=== PATIENT | male | born 1990 | race Caucasian/White ===

== ENCOUNTER 2016-07-05 01:18 | Emergency (ER) | payer OTHER ==
[~2016-07-05] VITALS: Ht 177.8 cm; Wt 72.0 kg
[2016-07-05 01:21] VITALS: BP 140/83; PULSE 69; RESP 16; TEMP 97.4; O2SAT 98
[2016-07-05 01:40] VITALS: RESP 16
[2016-07-05] MEDS ORDERED: SUBO8MIS SL (01:42)
[2016-07-05 01:51] LABS: AUTOMATED NEUTROPHIL # 2.9 TH/MM3 (1.8-7.7); BASOPHIL # 0.1 TH/MM3 (0-0.2); BASOPHIL % 0.9 % (0.0-2.0); EOSINOPHIL # 0.5 TH/MM3 (0-0.4); EOSINOPHIL % 8.4 % (0.0-4.0); HEMO FLAGS DIFF FINAL; LYMPH % 38.6 % (9.0-44.0); LYMPHOCYTE # 2.5 TH/MM3 (1.0-4.8); MEAN CELL VOLUME 83.7 FL (80.0-100.0); MEAN CORPUSCULAR HEMOGLOBIN 29.2 PG (27.0-34.0); MEAN CORPUSCULAR HGB CONC 34.9 % (32.0-36.0); MONO % 8.3 % (0.0-8.0); NEUT % 43.8 % (16.0-70.0); PLATELET COUNT 336 TH/MM3 (150-450); RED CELL DISTRIBUTION WIDTH 14.1 % (11.6-17.2); WHITE BLOOD COUNT 6.5 TH/MM3 (4.0-11.0)
--- NOTE | 2016-07-05 02:24 | RADRPT ---
EXAM DATE/TIME: 07/05/2016 01:48 [facility] COMPARISON: CT BRAIN W/O CONTRAST, November 01, 2015, 13:59. INDICATIONS : Syncope and dizziness. RADIATION DOSE: 38.21 CTDIvol (mGy) MEDICAL HISTORY : IV drug use. SURGICAL HISTORY : None. ENCOUNTER: Initial ACUITY: 1 day PAIN SCALE: 0/10 LOCATION: cranial TECHNIQUE: Multiple contiguous axial images were obtained of the head. Using automated exposure control and adj ustment of the mA and/or kV according to patient size, radiation dose was kept as low as reasonably a chievable to obtain optimal diagnostic quality images. FINDINGS: CEREBRUM: The ventricles are normal for age. No evidence of midline shift, mass lesion, hemorrhage or acute in farction. No extra-axial fluid collections are seen. POSTERIOR FOSSA: The cerebellum and brainstem are intact. The 4th ventricle is midline. The cerebellopontine angle i s unremarkable. EXTRACRANIAL: He callosal thickening right maxillary sinus. SKULL: The calvaria is intact. No evidence of skull fracture. CONCLUSION: 1. No acute intracranial findings. 2. Right maxillary sinus disease. Alex Sanders MD on July 05, 2016 at 2:21 Board Certified Radiologist. This report was verified electronically.
[2016-07-05 02:25] LABS: ALT (GPT) 21 U/L (12-78); ANION GAP 12 MEQ/L (5-15); AST (GOT) 20 U/L (15-37); BLOOD UREA NITROGEN 7 MG/DL (7-18); CHLORIDE 100 MEQ/L (98-107); GLOMERULAR FILTRATION RATE 107 ML/MIN (>89); MAGNESIUM 1.8 MG/DL (1.5-2.5); SODIUM (NA) 139 MEQ/L (136-145)
[2016-07-05 02:34] LABS: ACETAMINOPHEN LESS THAN 2.0 MCG/ML (10.0-30.0); ALKALINE PHOSPHATASE 122 U/L (45-117); CREATINE KINASE 134 U/L (39-308); TOTAL BILIRUBIN ADULT 0.6 MG/DL (0.2-1.0)
--- NOTE | 2016-07-05 02:44 | RADRPT ---
EXAM DATE/TIME: 07/05/2016 01:52 [facility] COMPARISON: No previous studies available for comparison. INDICATIONS : Chest pain. MEDICAL HISTORY : None. SURGICAL HISTORY : None. ENCOUNTER: Initial ACUITY: 1 day PAIN SCORE: 5/10 LOCATION: Bilateral chest FINDINGS: Single AP view of the chest. The lungs are clear. Cardiomediastinal silhouette within normal limits. No evidence of pleural effusion or pneumothorax. CONCLUSION: No acute cardiopulmonary disease identified. Alex Sanders MD on July 05, 2016 at 2:42 Board Certified Radiologist. This report was verified electronically.
[2016-07-05 02:46] LABS: CKMB 0.8 NG/ML (0.5-3.6)
--- NOTE | 2016-07-05 04:15 | PD ---
HPI Chief Complaint: Syncope/Near-Syncope Time Seen by Provider: 01:34 Travel History International Travel<30 days: No Contact w/Intl Traveler<30days: No Traveled to known affect area: No History of Present Illness HPI The patient is a 25 year old male who presents to the [facility] emergency department with a history of awakening from sound sleep with a sensation of his heart racing and palpitations. He reports that he sat up in the bed in the next thing he knew his he awoke again a few minutes later. He called his dad and was brought to the emergency department for evaluation. The patient reports that his recent history is significant for 4-5 days ago using IV Dilaudid for the last time. He reports that he has been on Suboxone for the last week and a half. He reports that most of his withdrawal symptoms have been controlled with the Suboxone, however he does have a history of anxiety and he has been somewhat tremulous. He reports that he is also had a history of panic attacks in the past and since arriving in the emergency department he is wondering if he was experiencing a panic attack and hyperventilating which caused him to pass out. He denies having any rashes or fever. He denies having any headache or neck pain. He reports that he is currently on an antibiotic for a dental infection. He has an appointment with his dentist for follow-up this week. The patient reports that he has not been tested for HIV or hepatitis, however he is interested in testing. The patient denies any cough , congestion, chest pain, shortness of breath, abdominal pain, vomiting, diarrhea, urinary symptoms, or neurologic symptoms. [facility] Past Medical History Narrative Medical The patient's past medical history is significant for IV Dilaudid use reportedly for years. He reports that he was prior to discontinuing his use injecting 5 times a day, 8 mg of Dilaudid. The patient has a history of panic attacks. Medical History: Denies Significant Hx Tetanus Vaccination: Unknown Past Surgical History Narrative Surgical The patient denies any past surgical history. Surgical History: No Previous Surgery Social History Alcohol Use: Yes (Couple beers a week) Tobacco Use: Yes (0.5 pack a week) Substance Use: Yes (Coccaine every so often, Dilaudid IV) Allergies-Medications (Allergen,Severity, Reaction): Coded Allergies: No Known Allergies (Unverified , 07/05/16) Reported Meds & Prescriptions Reported Meds & Active Scripts Active Reported Suboxone Sublingual Film (Buprenorphine-Naloxone Sublingual Film) 8-2 Mg Film 1 Film SL Q8HR Unique ID number required: Review of Systems Except as stated in HPI: all other systems reviewed are Neg General / Constitutional: No: Fever Eyes: No: Visual changes HENT: No: Headaches, Rhinorrhea, Congestion Cardiovascular: Positive: Palpitations, No: Chest Pain or Discomfort, Dyspnea on exertion Respiratory: No: Cough, Shortness of Breath Gastrointestinal: No: Nausea, Vomiting, Diarrhea, Abdominal Pain, Changes in Bowel Habits, Indigestion, Loss of Appetite Genitourinary: No: Dysuria Musculoskeletal: No: Pain Skin: No Rash Neurologic: No: Weakness, Focal Abnormalities, Change in Mentation, Slurred Speech, Sensory Disturbance Psychiatric: Positive: Substance Abuse, No: Depression Endocrine: No: Polydipsia Hematologic/Lymphatic: No: Easy Bruising Physical Exam Narrative General: The patient is a well-developed well-nourished male in no acute distress. Head and Neck exam: Head is normocephalic atraumatic. Eyes: EOMI, pupils are equal round and reactive to light. Nose: Midline septum with pink mucous membranes Mouth: Dentition unremarkable. Moist mucus membranes. Posterior oropharynx is not erythematous. No tonsillar hypertrophy. Uvula midline. Airway patent. Neck: No palpable lymphadenopathy. No nuchal rigidity. No thyromegaly. Cardiovascular: Regular rate and rhythm without murmurs, gallops, or rubs. Lungs: Clear to auscultation bilaterally. No wheezes, rhonchi, or rales. Abdomen: Soft, without tenderness to palpation in all 4 quadrants of the abdomen. No guarding, rebound, or rigidity. Normal bowel sounds are audible. Extremities: No clubbing, cyanosis, or edema. 2+ pulses in all 4 extremities. No calf tenderness on palpation. Back: No spinous process tenderness to palpation. No costovertebral angle tenderness to palpation. Neurologic Exam: Grossly nonfocal. Skin Exam: No rash noted. Intact skin that is warm and dry. Data Data Last Documented VS Vital Signs Date Time Temp Pulse Resp B/P Pulse Ox O2 Delivery O2 Flow Rate FiO2 07/05/16 01:40 16 Room Air 07/05/16 01:21 97.4 69 140/83 98 Orders Electrocardiogram (07/05/16 01:34) Complete Blood Count With Diff (07/05/16 01:34) Comprehensive Metabolic Panel (07/05/16 01:34) Creatine Kinase (Cpk) (07/05/16 01:34) Ckmb (Isoenzyme) Profile (07/05/16 01:34) Troponin I (07/05/16 01:34) Lipase (07/05/16 01:34) Urinalysis - C+S If Indicated (07/05/16 01:34) Magnesium (Mg) (07/05/16 01:34) Thyroid Stimulating Hormone (07/05/16 01:34) Chest, Single Ap (07/05/16 01:34) Iv Access Insert/Monitor (07/05/16 01:34) Ecg Monitoring (07/05/16 01:34) Oximetry (07/05/16 01:34) Orthostatic Vital Signs (07/05/16 01:34) Drug Screen, Random Urine (07/05/16 01:34) Alcohol (Ethanol) (07/05/16 01:34) Salicylates (Aspirin) (07/05/16 01:34) Tylenol (Acetaminophen) (07/05/16 01:34) Ct Brain W/O Iv Contrast(Rout) (07/05/16 01:34) CKMB (07/05/16 01:45) CKMB% (07/05/16 01:45) Labs Laboratory Tests Test 07/05/16 01:45 White Blood Count 6.5 TH/MM3 Red Blood Count 4.90 MIL/MM3 Hemoglobin 14.3 GM/DL Hematocrit 41.0 % Mean Corpuscular Volume 83.7 FL Mean Corpuscular Hemoglobin 29.2 PG Mean Corpuscular Hemoglobin 34.9 % Concent Red Cell Distribution Width 14.1 % Platelet Count 336 TH/MM3 Mean Platelet Volume 7.3 FL Neutrophils (%) (Auto) 43.8 % Lymphocytes (%) (Auto) 38.6 % Monocytes (%) (Auto) 8.3 % Eosinophils (%) (Auto) 8.4 % Basophils (%) (Auto) 0.9 % Neutrophils # (Auto) 2.9 TH/MM3 Lymphocytes # (Auto) 2.5 TH/MM3 Monocytes # (Auto) 0.5 TH/MM3 Eosinophils # (Auto) 0.5 TH/MM3 Basophils # (Auto) 0.1 TH/MM3 CBC Comment DIFF FINAL Differential Comment Sodium Level 139 MEQ/L Potassium Level 4.0 MEQ/L Chloride Level 100 MEQ/L Carbon Dioxide Level 27.0 MEQ/L Anion Gap 12 MEQ/L Blood Urea Nitrogen 7 MG/DL Creatinine 0.88 MG/DL Estimat Glomerular Filtration 107 ML/MIN Rate Random Glucose 89 MG/DL Calcium Level 8.7 MG/DL Magnesium Level 1.8 MG/DL Total Bilirubin 0.6 MG/DL Aspartate Amino Transf 20 U/L (AST/SGOT) Alanine Aminotransferase 21 U/L (ALT/SGPT) Alkaline Phosphatase 122 U/L Total Creatine Kinase 134 U/L Creatine Kinase MB 0.8 NG/ML Troponin I LESS THAN 0.02 NG/ML Total Protein 7.3 GM/DL Albumin 3.7 GM/DL Lipase 96 U/L Thyroid Stimulating Hormone 1.470 uIU/ML 3rd Gen Salicylates Level LESS THAN 1.7 MG/DL Acetaminophen Level LESS THAN 2.0 MCG/ML Ethyl Alcohol Level LESS THAN 3 MG/DL MDM Medical Decision Making Medical Screen Exam Complete: Yes Emergency Medical Condition: Yes Medical Record Reviewed: Yes Interpretation(s) Laboratory Tests Test 07/05/16 01:45 White Blood Count 6.5 TH/MM3 Red Blood Count 4.90 MIL/MM3 Hemoglobin 14.3 GM/DL Hematocrit 41.0 % Mean Corpuscular Volume 83.7 FL Mean Corpuscular Hemoglobin 29.2 PG Mean Corpuscular Hemoglobin 34.9 % Concent Red Cell Distribution Width 14.1 % Platelet Count 336 TH/MM3 Mean Platelet Volume 7.3 FL Neutrophils (%) (Auto) 43.8 % Lymphocytes (%) (Auto) 38.6 % Monocytes (%) (Auto) 8.3 % Eosinophils (%) (Auto) 8.4 % Basophils (%) (Auto) 0.9 % Neutrophils # (Auto) 2.9 TH/MM3 Lymphocytes # (Auto) 2.5 TH/MM3 Monocytes # (Auto) 0.5 TH/MM3 Eosinophils # (Auto) 0.5 TH/MM3 Basophils # (Auto) 0.1 TH/MM3 CBC Comment DIFF FINAL Differential Comment Sodium Level 139 MEQ/L Potassium Level 4.0 MEQ/L Chloride Level 100 MEQ/L Carbon Dioxide Level 27.0 MEQ/L Anion Gap 12 MEQ/L Blood Urea Nitrogen 7 MG/DL Creatinine 0.88 MG/DL Estimat Glomerular Filtration 107 ML/MIN Rate Random Glucose 89 MG/DL Calcium Level 8.7 MG/DL Magnesium Level 1.8 MG/DL Total Bilirubin 0.6 MG/DL Aspartate Amino Transf 20 U/L (AST/SGOT) Alanine Aminotransferase 21 U/L (ALT/SGPT) Alkaline Phosphatase 122 U/L Total Creatine Kinase 134 U/L Creatine Kinase MB 0.8 NG/ML Troponin I LESS THAN 0.02 NG/ML Total Protein 7.3 GM/DL Albumin 3.7 GM/DL Lipase 96 U/L Thyroid Stimulating Hormone 1.470 uIU/ML 3rd Gen Salicylates Level LESS THAN 1.7 MG/DL Acetaminophen Level LESS THAN 2.0 MCG/ML Ethyl Alcohol Level LESS THAN 3 MG/DL Differential Diagnosis Cardiac arrhythmia, versus panic disorder, versus dehydration, versus electrolyte abnormality, versus sleep apnea Narrative Course During the course of the patients emergency department visit, the patients history, examination, and differential diagnosis were reviewed with the patient. The patient had IV access obtained and blood work sent for analysis. The patient was placed on a bus driver/monitor with oximetry and blood pressure monitoring. An EKG was done on arrival. The patient's EKG reveals a sinus rhythm heart rate of 66, no acute ST segment elevation is noted, T waves are inverted in V1. The patient en route to this facility was by mouth hydrated with fluids. The patients laboratory studies were reviewed and remarkable for a CBC that shows a white count of 6.5, hemoglobin 14.3, platelets 336 with 8.3 monocytes, CMP is unremarkable, alkaline phosphatase 122, initial set of cardiac enzymes are negative, lipase 96, TSH 1.47, acetaminophen is less than 2, alcohol level less than 3, salicylate less than 1.7. Radiology studies were reviewed and remarkable for a chest x-ray that is unremarkable. CT scan of the brain is unremarkable. The patient is interested in HIV and hepatitis testing. The patient was referred to the [facility] Department for follow-up regarding this. The patient reported feeling improved. The patient had no recurrence of symptoms similar to what he experienced prior to arrival. I suspect that the patient's symptoms are related to a panic attack at the patient reports having similar symptoms to this in the past with a panic attack. The patient is resting comfortably and feels better, is alert and in no distress. The patients results and examination findings were discussed with the patient. The repeat examination is unremarkable and benign. The history, exam, diagnostic testing, and current condition do not suggest any significant pathology to warrant further testing, continued ED treatment, admission, or surgical evaluation at this point. The vital signs have been stable. The patient does not have uncontrollable pain, intractable vomiting, or other significant symptoms. The patient's condition is stable and appropriate for discharge. The patient will pursue further outpatient evaluation with a primary care physician or other designated or consulting physician as indicated in the discharge instructions. The patient expressed understanding and was agreeable with this plan. Diagnosis Primary Impression: Panic attack Additional Impression: Palpitations Referrals: [facility] Dept. 1 day Follow-up with the health department for HIV testing and hepatitis testing given your history of IV drug use Patient Instructions: General Instructions, Palpitations (ED) Med/Other Pt SpecificInfo: No Change to Meds Disposition: 01 DISCHARGE HOME Condition: Stable Fiona Martin MD Jul 05, 2016 04:15
--- NOTE | 2016-07-05 14:41 | EKG ---
Date Performed: 07/05/2016 Time Performed: 01:41:06 PTAGE: 25 years EKG: Sinus rhythm POSSIBLE RIGHT VENTRICULAR CONDUCTION DELAY BORDERLINE ECG NO PREVIOUS TRACING DOCTOR: Nathan Dunaway Interpretating Date/Time 07/05/2016 14:38:52
== END 2016-07-05 04:35 | disposition home or self-care (01) ==
LOC: NEPE 01:18
DX: F41.0 Panic disorder [episodic paroxysmal anxiety] (principal); R00.2 Palpitations; F41.9 Anxiety disorder, unspecified; Z72.0 Tobacco use; R94.31 Abnormal electrocardiogram [ECG] [EKG]
CPT/HCPCS: 70450; 71010; 80053; 80307; 82550; 82552; 83690; 83735; 84443; 84484; 85025; 93005

== ENCOUNTER 2016-07-18 10:45 | Emergency (ER) | payer OTHER ==
[~2016-07-18] VITALS: Ht 177.8 cm; Wt 70.0 kg
[~2016-07-18 10:45] MED LIST: SUBO8MIS SL
[2016-07-18 10:47] VITALS: BP 107/64; PULSE 58; RESP 16; TEMP 98.2; O2SAT 98
[2016-07-18] MEDS ORDERED: CLIN1CAP5 PO (12:35)
--- NOTE | 2016-07-18 12:36 | PD ---
HPI Chief Complaint: Oral / Dental Pain or Problem Time Seen by Provider: 12:32 Travel History International Travel<30 days: No Contact w/Intl Traveler<30days: No Traveled to known affect area: No History of Present Illness HPI 25-year-old male presents to the emergency department for evaluation of dental pain that has been ongoing for several months. He states he has had 2 rounds of penicillin. He finished his penicillin yesterday. He states that he is to follow-up with an oral surgeon to have it removed. However, started radiating to his ear which he became concerned. He denies any facial swelling. No fevers. He states that he has been having anxiety attacks and is concerned that his might be "in septic shock". The patient appears very well on exam. He has no melena medical problems and takes no other medications. No other complaints. [facility] Past Medical History Medical History: Denies Significant Hx Past Surgical History Surgical History: No Previous Surgery Social History Alcohol Use: Yes (Couple beers a week) Tobacco Use: Yes (0.5 pack a week cigarettes / can a day for "chew") Substance Use: Yes (Coccaine every so often, Dilaudid IV) Allergies-Medications (Allergen,Severity, Reaction): Coded Allergies: No Known Allergies (Unverified , 07/18/16) Reported Meds & Prescriptions Reported Meds & Active Scripts Active Reported Suboxone Sublingual Film (Buprenorphine-Naloxone Sublingual Film) 8-2 Mg Film 1 Film SL Q8HR Unique ID number required: Review of Systems Except as stated in HPI: all other systems reviewed are Neg Physical Exam Narrative GENERAL: Well-nourished, well-developed patient , ambulatory. Afebrile. Patient appears well on exam. SKIN: Focused skin assessment warm/dry. HEAD: Normocephalic. Atraumatic. ENT: Mucosa pink and moist. No erythema or exudates. No uvular edema. No uvular , palatal, or tonsillar deviation. Airway patent. Nasal turbinates appear normal without nasal blood, purulent drainage or septal hematoma. Bilateral tympanic membranes are clear without erythema or perforation. Tooth #30 is cracked. There is no gingival fluctuance or evidence of dental abscess. EYES: No scleral icterus. No injection or drainage. NECK: Supple, trachea midline. No JVD or lymphadenopathy. CARDIOVASCULAR: Regular rate and rhythm without murmurs, gallops, or rubs. RESPIRATORY: Breath sounds equal bilaterally. No accessory muscle use. Lungs sounds clear to auscultation. GASTROINTESTINAL: Abdomen soft, non-tender, nondistended. MUSCULOSKELETAL: No cyanosis, or edema. BACK: Nontender without obvious deformity. No CVA tenderness. Data Data Last Documented VS Vital Signs Date Time Temp Pulse Resp B/P Pulse Ox O2 Delivery O2 Flow Rate FiO2 07/18/16 10:47 98.2 58 16 107/64 98 MDM Medical Decision Making Medical Screen Exam Complete: Yes Emergency Medical Condition: Yes Medical Record Reviewed: Yes Differential Diagnosis Cracked tooth versus gingivitis versus dental caries versus dental abscess Narrative Course 25-year-old male presents to the emergency department for evaluation of dental pain is been ongoing for several months. He states he believes he needs a stronger antibiotic. The patient appears well on exam. He is afebrile. He has no evidence of sepsis or infection at this time. However, I will place him on clindamycin and he is to follow-up with his dentist and oral surgeon. He verbalizes agreement and understanding. The patient was discharged in stable condition with instructions, including return instructions and follow up instructions. Diagnosis Primary Impression: Broken or cracked tooth, nontraumatic Referrals: Dentist call for appointment Patient Instructions: General Instructions, Toothache (ED) Additional Instructions: Take antibiotic as instructed until gone. Follow-up with your dentist and oral surgeon. Return to the emergency department for any acute worsening of symptoms. Med/Other Pt SpecificInfo: Prescription(s) given Scripts Clindamycin 150 Mg [id number] Mg PO Q6H 10 Days Ref 0 Prov:Eunice Grande 07/18/16 Disposition: 01 DISCHARGE HOME Condition: Stable Eunice Grande Jul 18, 2016 12:36
[2016-07-18] MEDS ORDERED: CLINDAMYCIN 150 MG CAP PO ONE (12:45)
== END 2016-07-18 12:50 | disposition home or self-care (01) ==
LOC: NEPB 10:45
DX: K03.81 Cracked tooth (principal); F17.210 Nicotine dependence, cigarettes, uncomplicated; F17.220 Nicotine dependence, chewing tobacco, uncomplicated
CPT/HCPCS: 99282